=== PATIENT | female | born 1990 | race American Indian/Alaskan Native ===

== ENCOUNTER 2017-01-02 11:06 | Observation (INO) | payer MEDICAID ==
[2017-01-02 11:38] LABS: Basophils % (Auto) 0.8 % (0.0-1.8); Eosinophils % (Auto) 2.6 % (0.0-4.3); Hematocrit 35.6 % (30.3-42.9); Mean Corpuscular HGB Conc 34 % (30-34); Mean Corpuscular Hemoglobin 30 pg (28-32); Mean Corpuscular Volume 89 fl (79-97); Platelet Count 279 K/mm3 (140-440); Red Blood Count 3.99 M/mm3 (3.65-5.03); Red Cell Distribution Width 14.3 % (13.2-15.2); White Blood Count 4.8 K/mm3 (4.5-11.0)
[2017-01-02 12:02] LABS: Alanine Aminotransferase 77 units/L (7-56); Albumin/Globulin Ratio 1.1 %; Alkaline Phosphatase 58 units/L (35-129); Anion Gap 18 mmol/L; Blood Urea Nitrogen 10 mg/dL (7-17); Calcium 8.8 mg/dL (8.4-10.2); Carbon Dioxide 21 mmol/L (22-30); Chloride 102.9 mmol/L (98-107); Glucose 86 mg/dL (65-100); Lipase 50 units/L (13-60); Sodium 138 mmol/L (137-145); Total Protein 7.5 g/dL (6.3-8.2)
[2017-01-02 12:33] LABS: Bilirubin,Urine NEG (Negative)
[2017-01-02 12:34] LABS: Bacteria,Urine 2+ /HPF (Negative); Blood,Urine NEG (Negative); Ketones,Urine NEG (Negative); Leukocyte Esterase,Urine SM (Negative); Mucus,Urine 1+ /HPF; Nitrite,Urine NEG (Negative)
[2017-01-02] MEDS ORDERED: ZOFRAN IV ONE (15:23)
[2017-01-02] MEDS ORDERED: PEPCID IV ONE (15:23)
[2017-01-02] MEDS ORDERED: MORPHINE IV ONE (15:23)
--- NOTE | 2017-01-02 15:26 | Emergency Department Report ---
ED Abdominal Pain HPI - General Chief Complaint: Abdominal Pain Stated Complaint: ABD PAIN Time Seen by Provider: 01/02/17 14:58 Source: patient Mode of arrival: Ambulatory Limitations: No Limitations - History of Present Illness Initial Comments: 26 year old female with a past medical history previous presents to Hospital complaints of abdominal pain and back pain 4 days. Pain is in the epigastric and right upper quadrant area radiating to the right flank. Pain is moderate in intensit, intermittent, aching and sharp in intensity, worse with palpation and food intake. Positive nausea without vomiting or fever. No puts them on or hematochezia. No urinary symptoms reported. Patient took Pattie- Willoughby and Pepto-Bismol without relief. - Related Data Allergies Allergy/AdvReac Type Severity Reaction Status Date / Time No Known Allergies Allergy Verified 01/02/17 11:17 ED Review of Systems ROS: Stated complaint: ABD PAIN Other details as noted in HPI Comment: All other systems reviewed and negative Other: Constitutional: No fevers chills Eyes: No eye pain visual changes ENT: No ear pain or throat pain Neck: Denies pain Respiratory: Denies cough wheezing shortness of breath Cardiovascular: Denies chest pain, palpitations, syncope GI: as per hpi : Denies dysuria, urinary frequency, or urgency Musculoskeletal: As per HPI Skin: Denies rash, lesions, erythema Neurologic: Denies headache, numbness, weakness Psychiatric: Denies suicidal ideation, hallucinations ED Past Medical Hx - Past Medical History Previous Medical History?: No - Surgical History Past Surgical History?: Yes Additional Surgical History: - Social History Smoking Status: Never Smoker Substance Use Type: Alcohol ED Physical Exam - General Limitations: No Limitations - Other Other exam information: General: No limitations, patient is alert in no acute distress Head exam: Atraumatic, normocephalic Eyes exam: Normal appearance ENT: Moist mucous membrane, normal oropharynx Neck exam: Normal inspection, full range of motion, no meningismus nontender Respiratory exam: Clear to auscultation bilateral, no wheezes, rales, crackles Cardiovascular: Normal rate and rhythm, normal heart sounds Abdomen: Soft, nondistended, epigastric tenderness, right upper quadrant tenderness, negative Velazquez sign, with normal bowel sounds, no rebound, or guarding Extremity: Full range of motion normal inspection no deformity Back: Normal Inspection, full range of motion, no tenderness Neurologic: Alert, oriented x3, cranial nerves intact, no motor or sensory deficit Psychiatric: normal affect, normal mood Skin: Warm, dry, intact ED Course Vital Signs 01/02/17 01/02/17 01/02/17 11:13 15:04 15:15 Temperature 98.6 F 98.4 F Pulse Rate 103 H 89 Respiratory 18 18 Rate Blood Pressure 137/85 115/75 115/75 Blood Pressure 115/75 [Right] O2 Sat by Pulse 98 100 94 Oximetry 01/02/17 01/02/17 01/02/17 15:30 15:46 16:00 Temperature Pulse Rate Respiratory Rate Blood Pressure 114/60 114/60 104/77 Blood Pressure [Right] O2 Sat by Pulse 100 100 100 Oximetry 01/02/17 01/02/17 01/02/17 16:28 16:30 16:46 Temperature Pulse Rate Respiratory Rate Blood Pressure 104/77 116/64 116/64 Blood Pressure [Right] O2 Sat by Pulse 100 100 99 Oximetry 01/02/17 01/02/17 01/02/17 17:00 17:16 17:30 Temperature Pulse Rate Respiratory Rate Blood Pressure 110/62 110/62 107/55 Blood Pressure [Right] O2 Sat by Pulse 100 99 100 Oximetry 01/02/17 01/02/17 01/02/17 17:46 18:00 18:16 Temperature Pulse Rate Respiratory Rate Blood Pressure 107/55 103/53 103/53 Blood Pressure [Right] O2 Sat by Pulse 100 100 100 Oximetry - Reevaluation(s) Reevaluation #1: 01/02/17 15:26 Morphine and Zofran for pain. Pepcid given. Ultrasound pending 01/02/17 19:30 Patient feels better after pain medication ED Medical Decision Making - Lab Data Result diagrams: 01/02/17 11:28 01/02/17 11:28 Lab Results 01/02/17 01/02/17 01/02/17 Range/Units 11:28 11:28 12:13 WBC 4.8 (4.5-11.0) K/mm3 RBC 3.99 (3.65-5.03) M/mm3 Hgb 12.0 (10.1-14.3) gm/dl Hct 35.6 (30.3-42.9) % MCV 89 (79-97) fl MCH 30 (28-32) pg MCHC 34 (30-34) % RDW 14.3 (13.2-15.2) % Plt Count 279 (140-440) K/mm3 Lymph % (Auto) 44.1 H (13.4-35.0) % Lanier % (Auto) 7.8 H (0.0-7.3) % Eos % (Auto) 2.6 (0.0-4.3) % Baso % (Auto) 0.8 (0.0-1.8) % Lymph # 2.1 (1.2-5.4) K/mm3 Lanier # 0.4 (0.0-0.8) K/mm3 Eos # 0.1 (0.0-0.4) K/mm3 Baso # 0.0 (0.0-0.1) K/mm3 Seg Neutrophils % 44.7 (40.0-70.0) % Seg Neutrophils # 2.1 (1.8-7.7) K/mm3 Sodium 138 (137-145) mmol/L Potassium 4.0 (3.6-5.0) mmol/L Chloride 102.9 (98-107) mmol/L Carbon Dioxide 21 L (22-30) mmol/L Anion Gap 18 mmol/L BUN 10 (7-17) mg/dL Creatinine 0.5 L (0.7-1.2) mg/dL Estimated GFR > 60 ml/min BUN/Creatinine Ratio 20.00 % Glucose 86 (65-100) mg/dL Calcium 8.8 (8.4-10.2) mg/dL Total Bilirubin 0.50 (0.1-1.2) mg/dL AST 65 H (5-40) units/L ALT 77 H (7-56) units/L Alkaline Phosphatase 58 (35-129) units/L Total Protein 7.5 (6.3-8.2) g/dL Albumin 4.0 (3.9-5) g/dL Albumin/Globulin Ratio 1.1 % Lipase 50 (13-60) units/L Urine Color Yellow (Yellow) Urine Turbidity Cloudy (Clear) Urine pH 5.0 (5.0-7.0) Ur Specific Jones 1.028 (1.003-1.030) Urine Protein 30 mg/dl (Negative) mg/dL Urine Glucose (UA) Neg (Negative) mg/dL Urine Ketones Neg (Negative) mg/dL Urine Blood Neg (Negative) Urine Nitrite Neg (Negative) Urine Bilirubin Neg (Negative) Urine Urobilinogen 2.0 (<2.0) mg/dL Ur Leukocyte Esterase Sm (Negative) Urine WBC (Auto) 4.0 (0.0-6.0) /HPF Urine RBC (Auto) 3.0 (0.0-6.0) /HPF U Epithel Cells (Auto) 47.0 H (0-13.0) /HPF Urine Bacteria (Auto) 2+ (Negative) /HPF Urine Mucus 1+ /HPF Urine HCG, Qual (Negative) 01/02/17 Range/Units 12:13 WBC (4.5-11.0) K/mm3 RBC (3.65-5.03) M/mm3 Hgb (10.1-14.3) gm/dl Hct (30.3-42.9) % MCV (79-97) fl MCH (28-32) pg MCHC (30-34) % RDW (13.2-15.2) % Plt Count (140-440) K/mm3 Lymph % (Auto) (13.4-35.0) % Lanier % (Auto) (0.0-7.3) % Eos % (Auto) (0.0-4.3) % Baso % (Auto) (0.0-1.8) % Lymph # (1.2-5.4) K/mm3 Lanier # (0.0-0.8) K/mm3 Eos # (0.0-0.4) K/mm3 Baso # (0.0-0.1) K/mm3 Seg Neutrophils % (40.0-70.0) % Seg Neutrophils # (1.8-7.7) K/mm3 Sodium (137-145) mmol/L Potassium (3.6-5.0) mmol/L Chloride (98-107) mmol/L Carbon Dioxide (22-30) mmol/L Anion Gap mmol/L BUN (7-17) mg/dL Creatinine (0.7-1.2) mg/dL Estimated GFR ml/min BUN/Creatinine Ratio % Glucose (65-100) mg/dL Calcium (8.4-10.2) mg/dL Total Bilirubin (0.1-1.2) mg/dL AST (5-40) units/L ALT (7-56) units/L Alkaline Phosphatase (35-129) units/L Total Protein (6.3-8.2) g/dL Albumin (3.9-5) g/dL Albumin/Globulin Ratio % Lipase (13-60) units/L Urine Color (Yellow) Urine Turbidity (Clear) Urine pH (5.0-7.0) Ur Specific Jones (1.003-1.030) Urine Protein (Negative) mg/dL Urine Glucose (UA) (Negative) mg/dL Urine Ketones (Negative) mg/dL Urine Blood (Negative) Urine Nitrite (Negative) Urine Bilirubin (Negative) Urine Urobilinogen (<2.0) mg/dL Ur Leukocyte Esterase (Negative) Urine WBC (Auto) (0.0-6.0) /HPF Urine RBC (Auto) (0.0-6.0) /HPF U Epithel Cells (Auto) (0-13.0) /HPF Urine Bacteria (Auto) (Negative) /HPF Urine Mucus /HPF Urine HCG, Qual Positive A (Negative) - Radiology Data Radiology results: report reviewed Abdominal ultrasound: Positive cholelithiasis. No evidence of cholecystitis Transvaginal/OB ultrasound: No IUP. Uterus is retroverted. No free fluid. Right ovary visualized. Left ovary not visualized. - Medical Decision Making Patient's pain likey secondary to biliary colic. Patient to follow up with a surgeon as outpatient since no signs of acute cholecystitis. Patient has elevated quantitative rate of 5000 and no IUP is visualized. PATIENT WILL BE ADMITTED TO [facility] FOR FURTHER MONITORING AND REPEAT QUANT TOMORROW. At this time ectopic cannot be ruled out. - Differential Diagnosis biliary colic, PUD, gastritis, renal colic, UTI Critical Care Time: No Critical care attestation.: If time is entered above; I have spent that time in minutes in the direct care of this critically ill patient, excluding procedure time. ED Disposition Clinical Impression: Cholelithiasis, Elevated serum hCG Disposition: OP ADMIT IP TO THIS HOSP Is pt being admited?: Yes Condition: Stable Time of Disposition: 19:57 (Dr Sparrow/circulation supervisor)
--- NOTE | 2017-01-02 17:41 | Ultrasound Report ---
FINAL REPORT PROCEDURE: US ABDOMEN COMPLETE TECHNIQUE: Real-time sonography in multiple planes of the abdomen was performed with image documentation. CPT 07226 HISTORY: ruq, epigastric pain COMPARISON: No prior studies are available for comparison. FINDINGS: Liver: Limited evaluation due to body habitus. No gross abnormality is seen. Gallbladder: 1.4 centimeter echogenic gallstone is seen within the gallbladder lumen. No gallbladder wall thickening. Masonry Instructor reports a negative sonographic Velazquez sign. Intrahepatic bile ducts: Normal caliber . Extrahepatic bile ducts: Common bile duct measures 4 millimeters in caliber. Pancreas: Not well-visualized. Aorta: Visualized portions appear normal. IVC: Visualized portions appear normal. RIGHT kidney: Normal echotexture. No focal renal mass, calculus, or hydronephrosis. Length: 11.1cm. LEFT kidney: Normal echotexture. No focal renal mass, calculus, or hydronephrosis . Length: 13.0cm. Spleen: Normal size and echotexture. No focal lesions. Intraperitoneal fluid: None . Other: None . IMPRESSION: Cholelithiasis. No sonographic evidence of acute cholecystitis.
--- NOTE | 2017-01-02 19:38 | Ultrasound Report ---
FINAL REPORT PROCEDURE: US OB TRANSVAGINAL TECHNIQUE: Real-time transvaginal sonography of the uterus, placenta, amniotic fluid, adnexa, and fetus was performed with image documentation. Measurements were obtained to determine age/size. M-mode Doppler was used to document heartbeat. CPT 78616 HISTORY: pregancy, abd pain COMPARISON: No prior studies are available for comparison. FINDINGS: Endometrial thickness is 20 millimeters. There is no evidence of any intrauterine gestational sac. Thin layer of fluid is identified in the fundal endometrial canal. Uterus is retroverted and measures 13 x 6 by 7 centimeters. Right ovary measures 2.8 x 2.7 x 2.1 centimeters. Left ovary is not visualized. There is no free fluid in the pelvic cavity. IMPRESSION: There is no evidence of any intrauterine gestational sac. Uterus is retroverted. Please note that an ectopic gestation cannot be excluded on the sonographic findings alone 2. EDC by US .
--- NOTE | 2017-01-02 19:39 | Ultrasound Report ---
FINAL REPORT PROCEDURE: US OB \T\lt; = 14 WEEKS FETUS TECHNIQUE: Real-time transabdominal sonography of the uterus, placenta, amniotic fluid, adnexa, and fetus was performed with image documentation. Measurements were obtained to determine age/size. M-mode Doppler was used to document heartbeat. CPT 63297 HISTORY: pregancy, abd pain COMPARISON: No prior studies are available for comparison. FINDINGS: Endometrial thickness is 20 millimeters. There is no evidence of any intrauterine gestational sac. Thin layer of fluid is identified in the fundal endometrial canal. Uterus is retroverted and measures 13 x 6 by 7 centimeters. Right ovary measures 2.8 x 2.7 x 2.1 centimeters. Left ovary is not visualized. There is no free fluid in the pelvic cavity. IMPRESSION: There is no evidence of any intrauterine gestational sac. Uterus is retroverted. Please note that an ectopic gestation cannot be excluded on the sonographic findings alone
[2017-01-02] MEDS ORDERED: TYLENOL PO PRN (22:40)
[2017-01-02] MEDS ORDERED: DULCOLAX PR PRN (22:40)
[2017-01-02] MEDS ORDERED: ZOFRAN IV PRN (22:40)
[2017-01-02] MEDS ORDERED: MILK OF MAGNESIA PO PRN (22:40)
[2017-01-02] MEDS: NACL 0.9% 1000 ML 1,000 ML IV SCH (23:22)
--- NOTE | 2017-01-03 00:56 | History and Physical Report ---
History of Present Illness Date of examination: 01/03/17 Date of admission: 01/02/17 20:50 History of present illness: This 26-year-old black female para 1001 whose last menstrual period was 2016 presented to emergency room with complaints of right upper quadrant pain and lower back pain for 4-5 days. Patient states she's had nausea for several weeks. Patient workup included the abdominal abdomen which revealed gallstones but later discovered the patient had a positive test. She underwent a pelvic ultrasound which showed no evidence of intrauterine but no free fluid in the pelvis. Patient denies any abnormal vaginal bleeding denies any pelvic pain. OB history: Patient had a section 4 years ago due to nonreassuring heart tracing CASCADE OPERATOR history: Patient with no history of abnormal Pap smear she states her last Pap smear was 6 months ago. Patient was on Depo-Provera with the last injection 6 months ago. History of Trichomonas in the past no other STDs in her past Past History Past Medical History: No medical history Past Surgical History: Medications and Allergies Allergies Allergy/AdvReac Type Severity Reaction Status Date / Time No Known Allergies Allergy Verified 01/02/17 11:17 Home Medications Medication Instructions Recorded Confirmed Last Taken Type No Known Home Medications [No 01/02/17 01/02/17 Unknown History Reported Home Medications] Active Meds: Active Medications Acetaminophen (Tylenol) 650 mg PO Q4H PRN PRN Reason: Pain MILD(1-3)/Fever >100.5/REECE Bisacodyl (Dulcolax) 10 mg [place] QDAY PRN PRN Reason: Constipation unrelieved by MOM Sodium Chloride (Nacl 0.9% 1000 Ml) 1,000 mls @ 125 mls/hr IV DIRECT STEFANO Last Admin: 01/02/17 23:22 Dose: 125 mls/hr Magnesium Hydroxide (Milk Of Magnesia) 30 ml PO Q4H PRN PRN Reason: Constipation Ondansetron HCl (Zofran) 4 mg IV Q8H PRN PRN Reason: N/V unrelieved by Reglan Review of Systems Constitutional: other (see HPI) Genitourinary Female: no pelvic pain, no menorrhagia, no abnormal vaginal bleeding Exam - Constitutional Vitals: Temp Pulse Resp BP Pulse Ox 98.6 F 71 16 111/62 100 01/03/17 00:00 01/03/17 00:00 01/03/17 00:00 01/03/17 00:00 01/02/17 19:00 General appearance: Present: no acute distress - Respiratory Respiratory effort: normal - Cardiovascular Rhythm: regular - Extremities Extremities: no ischemia - Abdominal General gastrointestinal: Present: soft, tender (right upper quadrant nontender lower quadrants) Localized gastrointestinal: tender: RUQ Female genitourinary: Present: deferred - Rectal Rectal Exam: deferred - Integumentary Integumentary: Present: clear, warm, dry - Psychiatric Psychiatric: appropriate mood/affect, intact judgment & insight - Neurologic Neurologic: moves all extremities Results - Labs CBC & Chem 7: 01/02/17 11:28 01/02/17 11:28 Assessment and Plan - Patient Problems (1) Cholelithiasis Current Visit: Yes Status: Acute Qualifiers: Cholelithiasis location: C Cholecystitis presence: C Cholangitis presence : C Cholecystitis acuity: C Cholangitis acuity: C Biliary obstruction: B Plan to address problem: Will evaluate outpatient with surgeon (2) Elevated serum hCG Current Visit: Yes Status: Acute Plan to address problem: Patient with an level over 5000 with no IUP. Hospital Z is spontaneous versus ectopic patient has no symptoms of ectopic also possibility of early intrauterine . Will observe overnight and reassess in the morning we will repeat serum beta-hCG.
[2017-01-03] MEDS: NACL 0.9% 1000 ML 1,000 ML IV SCH (06:08)
[2017-01-03] MEDS ORDERED: TYLENOL #3 PO ONE (10:13)
--- NOTE | 2017-01-03 10:41 | Discharge Summary ---
Providers - Providers Date of Admission: 01/02/17 20:50 Date of discharge: 01/03/17 Attending physician: SYLVIA DAVIS Primary care physician: GEM EXPERT Hospitalization Reason for admission: rule out ectopic Condition: Good Hospital course: See H&P for details. Repeat beta-hCG only several a slight increase. Patient again denied any pelvic pain or abnormal vaginal bleeding her pain is still appears to be associated with her gallstones. Disposition: - TO HOME OR SELFCARE - Discharge Diagnoses (1) Cholelithiasis Status: Acute Qualifiers: Cholelithiasis location: C Cholecystitis presence: C Cholangitis presence : C Cholecystitis acuity: C Cholangitis acuity: C Biliary obstruction: B (2) Elevated serum hCG Status: Acute Comment: Discussed with the patient options of treatment this is an ectopic and option of methotrexate but patient declined due to her her that this may be a normal . Also discussed the treatment with laparoscopy which patient declines. Patient desires expectant management with follow-up in my office in 48 hours repeat ultrasound and beta hCG. Again stress the patient reports risks of possible internal bleeding could be severe with ectopic Core Measure Documentation - Palliative Care Palliative Care/ Comfort Measures: Not Applicable - Core Measures Any of the following diagnoses?: none Exam - Constitutional Vitals: Temp Pulse Resp BP Pulse Ox 98.6 F 72 18 118/70 100 01/03/17 04:00 01/03/17 04:00 01/03/17 08:04 01/03/17 08:04 01/02/17 21:30 General appearance: Present: no acute distress - Respiratory Respiratory effort: normal - Cardiovascular Rhythm: regular - Extremities Extremities: no ischemia, No edema - Abdominal General gastrointestinal: Present: soft, non-tender (and lower abdomen suprapubically and no adnexal tenderness), tender Localized gastrointestinal: tender: RUQ Female genitourinary: Present: deferred - Rectal Rectal Exam: deferred - Integumentary Integumentary: Present: clear, warm, dry - Psychiatric Psychiatric: appropriate mood/affect, intact judgment & insight - Neurologic Neurologic: moves all extremities Plan Activity: advance as tolerated Diet: regular Additional Instructions: Patient instructed to call for any increase in pelvic pain or abnormal vaginal bleeding nausea vomiting or pain not controlled pain medicines. My office information was given the patient follow-up in office in 48-72 hours Follow up with: PRIMARY CARE, [Primary Care Provider] - 7 Days Prescriptions: Acetaminophen/Codeine [Tylenol #3] 1 tab PO Q4HR PRN #20 tablet PRN Reason: Pain
[2017-01-03 14:38] VITALS: BP 146/84
== END 2017-01-03 13:00 | disposition home or self-care (01) ==
LOC: ED 11:06 → OB 20:50
PROVIDERS: ADMIT Obstetrics & Gynecology; ATTEND Obstetrics & Gynecology
DX: K80.20 Calculus of gallbladder without cholecystitis without obstruction (principal); E34.9 Endocrine disorder, unspecified
CPT/HCPCS: 36415; 76700; 76801; 76817; 80053; 81001; 81025; 83690; 84702; 85025; 96361; 96374; 96375; 99285; G0378; J2270; J2405; J7030

== ENCOUNTER 2018-08-09 20:27 | Emergency (ER) | payer MEDICAID, OTHER ==
--- NOTE | 2018-08-09 20:54 | Emergency Department Report ---
Blank Doc - Documentation Documentation: This is a 27-year-old female that presents with weakness and dizziness. This initial assessment/diagnostic orders/clinical plan/treatment(s) is/are subject to change based on patient's health status, clinical progression and re- assessment by fellow clinical providers in the ED. Further treatment and workup at subsequent clinical providers discretion. Patient/guardians urged not to elope from the ED as their condition may be serious if not clinically assessed and managed. Initial orders include: 1- Patient sent to [facility] for further evaluation and treatment 2- labs 3- UA
[2018-08-09 20:57] VITALS: BP 141/81
[2018-08-09 21:47] LABS: Basophils % (Auto) 0.6 % (0.0-1.8); Eosinophils # (Auto) 0.2 K/mm3 (0.0-0.4); Eosinophils % (Auto) 3.2 % (0.0-4.3); Hematocrit 33.3 % (30.3-42.9); Hemoglobin 11.7 gm/dl (10.1-14.3); Lymphocytes # (Auto) 2.2 K/mm3 (1.2-5.4); Mean Corpuscular HGB Conc 35 % (30-34); Mean Corpuscular Volume 89 fl (79-97); Monocytes # (Auto) 0.5 K/mm3 (0.0-0.8); Monocytes % (Auto) 8.6 % (0.0-7.3); Platelet Count 275 K/mm3 (140-440); Red Blood Count 3.76 M/mm3 (3.65-5.03)
[2018-08-09 22:01] LABS: BUN/Creatinine Ratio 16; Blood Urea Nitrogen 11 mg/dL (7-17); Hemolysis Index 1
[2018-08-09 22:17] LABS: Bilirubin,Urine NEG (Negative); Blood,Urine LG (Negative); Color,Urine Red (Yellow); Mucus,Urine 1+ /HPF; Urobilinogen,Urine < 2.0 mg/dL (<2.0)
[2018-08-09 22:18] LABS: RBC,Urine > 182.0 /HPF (0.0-6.0); WBC,Urine > 182.0 /HPF (0.0-6.0)
[2018-08-10] MEDS ORDERED: NACL 0.9% 1000 ML 1,000 ML IV ONE (01:53)
[2018-08-10] MEDS ORDERED: ROCEPHIN/NS 1 GM/50 ML 1 GM/50 ML BAG IV ONE (01:53)
[2018-08-10] MEDS ORDERED: TORADOL IV ONE (01:54)
[2018-08-10] MEDS ORDERED: ZOFRAN IV ONE (01:54)
--- NOTE | 2018-08-10 03:49 | Emergency Department Report ---
ED General Adult HPI - General Chief complaint: Dizziness Stated complaint: WEAKNESS/DIZZINESS Time Seen by Provider: 08/09/18 20:53 Source: patient Mode of arrival: Ambulatory Limitations: No Limitations - History of Present Illness Initial comments: This is a 27-year-old female that presents with weakness and dizziness with associated urinary frequency no vaginal discharge no fever or chills. Onset/Timin -: days(s), week(s) Severity scale (0 -10): 0 Consistency: intermittent Improves with: none Worsens with: none Associated Symptoms: denies: fever/chills, nausea/vomiting - Related Data Previous Rx's Medication Instructions Recorded Last Taken Type Acetaminophen/Codeine [Tylenol #3] 1 tab PO Q4HR PRN #20 tablet 01/03/17 Unknown Rx Ibuprofen 800 mg PO TID PRN #30 tablet 08/10/18 Unknown Rx Nitrofurantoin Monohyd/M-Cryst 100 mg PO BID 7 Days #14 capsule 08/10/18 Unknown Rx [Macrobid 100 mg Capsule] Allergies Allergy/AdvReac Type Severity Reaction Status Date / Time No Known Allergies Allergy Verified 01/02/17 11:17 ED Review of Systems ROS: Stated complaint: WEAKNESS/DIZZINESS Other details as noted in HPI Constitutional: denies: chills, fever Eyes: denies: eye pain, eye discharge, vision change ENT: denies: ear pain, throat pain Respiratory: denies: cough, shortness of breath, wheezing Cardiovascular: denies: chest pain, palpitations Endocrine: no symptoms reported Gastrointestinal: denies: abdominal pain, nausea, diarrhea Genitourinary: denies: urgency, dysuria, discharge Musculoskeletal: denies: back pain, joint swelling, arthralgia Skin: denies: rash, lesions Neurological: denies: headache, weakness, paresthesias Psychiatric: denies: anxiety, depression Hematological/Lymphatic: denies: easy bleeding, easy bruising ED Past Medical Hx - Past Medical History Previous Medical History?: No Hx Asthma: No - Surgical History Past Surgical History?: Yes Additional Surgical History: - Social History Smoking Status: Never Smoker Substance Use Type: None - Medications Home Medications: Home Medications Medication Instructions Recorded Confirmed Last Taken Type Acetaminophen/Codeine [Tylenol #3] 1 tab PO Q4HR PRN #20 tablet 01/03/17 Unknown Rx Ibuprofen 800 mg PO TID PRN #30 tablet 08/10/18 Unknown Rx Nitrofurantoin Monohyd/M-Cryst 100 mg PO BID 7 Days #14 capsule 08/10/18 Unknown Rx [Macrobid 100 mg Capsule] ED Physical Exam - General Limitations: No Limitations General appearance: alert, in no apparent distress - Head Head exam: Present: atraumatic, normocephalic - Eye Eye exam: Present: normal appearance, PERRL, EOMI Pupils: Present: normal accommodation - ENT ENT exam: Present: mucous membranes moist - Neck Neck exam: Present: normal inspection, full ROM. Absent: tenderness, meningismus, lymphadenopathy, thyromegaly - Respiratory Respiratory exam: Present: normal lung sounds bilaterally. Absent: respiratory distress, wheezes, stridor, chest wall tenderness - Cardiovascular Cardiovascular Exam: Present: regular rate, normal rhythm, normal heart sounds. Absent: systolic murmur, diastolic murmur, rubs, gallop - GI/Abdominal GI/Abdominal exam: Present: soft, normal bowel sounds. Absent: distended, tenderness, guarding, rebound, rigid, bruit, hernia - Rectal Rectal exam: Present: deferred - Extremities Exam Extremities exam: Present: normal inspection, full ROM, normal capillary refill. Absent: tenderness, calf tenderness - Back Exam Back exam: Present: normal inspection, full ROM. Absent: tenderness, CVA tenderness (R), CVA tenderness (L), muscle spasm, rash noted - Neurological Exam Neurological exam: Present: alert, oriented X3, CN II-XII intact, normal gait. Absent: reflexes normal - Psychiatric Psychiatric exam: Present: normal affect, normal mood - Skin Skin exam: Present: warm, dry, intact, normal color. Absent: rash ED Course Vital Signs 08/09/18 08/10/18 08/10/18 20:54 01:35 02:45 Temperature 98.7 F Pulse Rate 108 H 88 Respiratory 18 18 16 Rate Blood Pressure 141/81 O2 Sat by Pulse 98 99 Oximetry ED Medical Decision Making - Lab Data Result diagrams: 08/09/18 21:19 08/09/18 21:19 Labs 08/09/18 08/09/18 08/09/18 21:19 21:19 21:19 WBC 5.8 RBC 3.76 Hgb 11.7 Hct 33.3 MCV 89 MCH 31 MCHC 35 H RDW 15.0 Plt Count 275 Lymph % (Auto) 38.0 H Shannon % (Auto) 8.6 H Eos % (Auto) 3.2 Baso % (Auto) 0.6 Lymph # 2.2 Shannon # 0.5 Eos # 0.2 Baso # 0.0 Seg Neutrophils % 49.6 Seg Neutrophils # 2.9 Sodium 140 Potassium 3.8 Chloride 104.2 Carbon Dioxide 26 Anion Gap 14 BUN 11 Creatinine 0.7 Estimated GFR > 60 BUN/Creatinine Ratio 16 Glucose 92 Calcium 9.0 HCG, Qual Negative Urine Color Urine Turbidity Urine pH Ur Specific [place] Urine Protein Urine Glucose (UA) Urine Ketones Urine Blood Urine Nitrite Urine Bilirubin Urine Urobilinogen Ur Leukocyte Esterase Urine WBC (Auto) Urine RBC (Auto) U Epithel Cells (Auto) Urine WBC Clumps Urine Mucus 08/09/18 21:53 WBC RBC Hgb Hct MCV MCH MCHC RDW Plt Count Lymph % (Auto) Shannon % (Auto) Eos % (Auto) Baso % (Auto) Lymph # Shannon # Eos # Baso # Seg Neutrophils % Seg Neutrophils # Sodium Potassium Chloride Carbon Dioxide Anion Gap BUN Creatinine Estimated GFR BUN/Creatinine Ratio Glucose Calcium HCG, Qual Urine Color Red Urine Turbidity Cloudy Urine pH 6.0 Ur Specific [place] 1.036 H Urine Protein 100 mg/dl Urine Glucose (UA) 50 Urine Ketones Neg Urine Blood Lg Urine Nitrite Neg Urine Bilirubin Neg Urine Urobilinogen < 2.0 Ur Leukocyte Esterase Tr Urine WBC (Auto) > 182.0 H Urine RBC (Auto) > 182.0 U Epithel Cells (Auto) 22.0 H Urine WBC Clumps 3+ Urine Mucus 1+ - EKG Data EKG shows normal: sinus rhythm, axis, intervals, QRS complexes, ST-T waves Rate: normal - EKG Data Interpretation: normal EKG (ekg interp by ed attending no st elevation no ectopy ) - Medical Decision Making EKG: NSR, No ST elevation, UA: lg luek, wbc, tx with rocephin, NS 1 liter iv, pt advised symptoms improved no dizziness no n/v no fever or chills at this time. pt is ambulatory , gait is steady , pt is asymptomatic at this time, pt dc'd to home in stable condition at this time. Critical care attestation.: If time is entered above; I have spent that time in minutes in the direct care of this critically ill patient, excluding procedure time. ED Disposition Clinical Impression: UTI (urinary tract infection) Qualifiers: Urinary tract infection type: acute cystitis Hematuria presence: without hematuria Qualified Code(s): N30.00 - Acute cystitis without hematuria Disposition: TO HOME OR SELFCARE Is pt being admited?: No Does the pt Need Aspirin: No Condition: Stable Instructions: Urinary Tract Infection in Women (ED) Prescriptions: Ibuprofen 800 mg PO TID PRN #30 tablet PRN Reason: PRN Nitrofurantoin Monohyd/M-Cryst [Macrobid 100 mg Capsule] 100 mg PO BID 7 Days #14 capsule Referrals: [facility] [Outside] - 3-5 Days Forms: Work/School Release Form(ED) Time of Disposition: 03:59
== END 2018-08-10 04:16 | disposition home or self-care (01) ==
LOC: ED 20:27
DX: N30.00 Acute cystitis without hematuria (principal)
CPT/HCPCS: 36415; 80048; 81001; 84703; 85025; 93005; 93010; 96365; 96375; 99283; J0696; J1885; J2405; J7030

== ENCOUNTER 2021-02-26 09:48 | Emergency (ER) | payer MEDICAID ==
[2021-02-26 09:55] VITALS: BP 126/90
--- NOTE | 2021-02-26 09:55 | Emergency Department Report ---
- General Stated complaint: BREAST SWOLLEN Time Seen by Provider: 02/26/21 09:53 Source: patient Mode of arrival: Ambulatory Limitations: No Limitations - History of Present Illness Initial comments: 30 YO AA COMES TO ER WITH CO R BREAST REDNESS P BEING BIT BY INSECT YESTERDAY. SHE DOES NOT KNOW WHAT KIND OF BUG IT WAS. RIGHT BREAST RED/ NO ABSCESS. PT DENIES PAIN. NO DRAINAGE. NO FEVER/CHILLS PT AMBULATORY AND NON ILL APPEARING ON EXAM IN ER complaint: insect bite/sting, discoloration -: Sudden, days(s) Tetanus Up to Date: yes Severity: mild Severity scale (0 -10): 0 Context: witnessed insect bite Associated symptoms: denies other symptoms Treatments Prior to Arrival: none - Related Data Previous Rx's Medication Instructions Recorded Last Taken Type cephALEXin [Keflex] 500 mg PO Q12HR #20 cap 02/26/21 Unknown Rx Allergies Allergy/AdvReac Type Severity Reaction Status Date / Time No Known Allergies Allergy Verified 01/02/17 11:17 Abscess Boil HPI - HPI Stated Complaint: BREAST SWOLLEN Time Seen by Provider: 02/26/21 09:53 Home Medications: Previous Rx's Medication Instructions Recorded Last Taken Type cephALEXin [Keflex] 500 mg PO Q12HR #20 cap 02/26/21 Unknown Rx Allergies/Adverse Reactions: Allergies Allergy/AdvReac Type Severity Reaction Status Date / Time No Known Allergies Allergy Verified 01/02/17 11:17 ED Review of Systems ROS: Stated complaint: BREAST SWOLLEN Other details as noted in HPI Comment: All other systems reviewed and negative ED Past Medical Hx - Past Medical History Previous Medical History?: No Hx Asthma: No Additional medical history: heart murmur - Surgical History Past Surgical History?: Yes Additional Surgical History: - Family History Family history: no significant - Social History Smoking Status: Never Smoker Substance Use Type: Alcohol - Medications Home Medications: Home Medications Medication Instructions Recorded Confirmed Last Taken Type cephALEXin [Keflex] 500 mg PO Q12HR #20 cap 02/26/21 Unknown Rx ED Physical Exam - General General appearance: alert, in no apparent distress - Head Head exam: Present: atraumatic, normocephalic - Eye Eye exam: Present: normal appearance - ENT ENT exam: Present: mucous membranes moist - Neck Neck exam: Present: normal inspection - Respiratory Respiratory exam: Present: normal lung sounds bilaterally. Absent: respiratory distress - Cardiovascular Cardiovascular Exam: Present: regular rate, normal rhythm. Absent: systolic mu rmur, diastolic murmur, rubs, gallop - GI/Abdominal GI/Abdominal exam: Present: soft, normal bowel sounds - Extremities Exam Extremities exam: Present: normal inspection - Back Exam Back exam: Present: normal inspection - Neurological Exam Neurological exam: Present: alert, oriented X3 - Psychiatric Psychiatric exam: Present: normal affect, normal mood - Skin Skin exam: Present: warm, dry, intact, other. Absent: rash - Expanded Skin Exam Expanded 1 - PENDULOUS R BREAST; RED TO THE LEFT OF MIDLINE, BELOW THE NIPPLE; APPROX 3 INC X 3 INC AREA. NO DRAINGE. NO ABSCESS. WARM TO TOUCH. NO FLUCT. ED Course Vital Signs 02/26/21 09:54 Temperature 98.3 F Pulse Rate 85 Respiratory 16 Rate Blood Pressure 126/90 O2 Sat by Pulse 97 Oximetry ED Medical Decision Making - Medical Decision Making R BREAST - NO ABSCESS RED/INFLAMMED NO INDICATION FOR I/D NO INDICATION FOR LABS AMBULATORY AND TAKING PO Vital Signs (72 hours) 02/26/21 09:54 Temperature 98.3 F Pulse Rate 85 Respiratory 16 Rate Blood Pressure 126/90 O2 Sat by Pulse 97 Oximetry DC HOME WITH DC PLAN OF CARE INCLUDING WOUND CARE/ MEDS AND FOLLOW UP. PT VERBALIZES UNDERSTANDING OF PLAN OF CARE - Differential Diagnosis CELLULTIIS/ABSCESS Critical care attestation.: If time is entered above; I have spent that time in minutes in the direct care of this critically ill patient, excluding procedure time. ED Disposition Clinical Impression: Cellulitis, Insect bite Disposition: 01 HOME / SELF CARE / HOMELESS Is pt being admited?: No Does the pt Need Aspirin: No Condition: Stable Instructions: Cellulitis, Adult Additional Instructions: warm compresses motrin or tylenol for pain med as ordered today until gone follow up with pcp in 48 hours for rcheck referral below Prescriptions: cephALEXin [Keflex] 500 mg PO Q12HR #20 cap Referrals: RUSSELL SEWELL MD [Staff Physician] - 3-5 Days Time of Disposition: 09:54
== END 2021-02-26 10:21 | disposition home or self-care (01) ==
LOC: ED 09:48
DX: S20.161A Insect bite (nonvenomous) of breast, right breast, initial encounter (principal); N61.0 Mastitis without abscess; F10.20 Alcohol dependence, uncomplicated
CPT/HCPCS: 99281

== ENCOUNTER 2021-10-29 14:30 | Emergency (ER) | payer MEDICAID ==
[2021-10-29 16:14] VITALS: BP 141/99
[2021-10-29 16:51] LABS: Bacteria,Urine 1+ /HPF (Negative); Bilirubin,Urine NEG (Negative); Blood,Urine NEG (Negative); Color,Urine Yellow (Yellow); Mucus,Urine 2+ /HPF; Protein,Urine <15 mg/dL mg/dL (Negative); Urobilinogen,Urine < 2.0 mg/dL (<2.0)
[2021-10-29 17:08] LABS: HCG Qualitative,Urine Negative (Negative)
[2021-10-29] MEDS ORDERED: cephALEXin 500 MG CAP PO ONE (21:08)
[2021-10-29] MEDS ORDERED: ACETAMINOPHEN 500 MG TAB PO ONE (21:08)
[2021-10-29] MEDS ORDERED: METOCLOPRAMIDE 10 MG TAB PO ONE (21:08)
[2021-10-29] MEDS ORDERED: diphenhydrAMINE 25 MG CAP PO ONE (21:08)
--- NOTE | 2021-10-29 21:33 | Emergency Department Report ---
ED General Adult HPI - General Chief complaint: Headache Stated complaint: HEAD AND ABD PAIN X 1WEEK Time Seen by Provider: 10/29/21 21:06 Source: patient Mode of arrival: Ambulatory Limitations: No Limitations - History of Present Illness Initial comments: Patient 31-year-old female who presents for headache frontal rated at 4/10 for the past 3 days intermittently. Patient states history of headaches in the past. In same location and intensity. There is no nausea there is no vomiting. There is no photophobia. There is been no fever chills no ear or throat pain. Patient states secondary complaint of lower abdominal pain with urinary frequency for 2 days. Patient denies fevers or chills there is no vaginal discharge. There is no hematuria. No low back pain. Symptoms are exacerbated by voiding. Symptoms are relieved by nothing tried. Last menstrual cycle 3 weeks ago. - Related Data Previous Rx's Medication Instructions Recorded Last Taken Type cephALEXin [Keflex] 500 mg PO Q12HR #20 cap 02/26/21 Unknown Rx Acetaminophen [Acetaminophen TAB] 1,000 mg PO Q6HR PRN #30 tablet 10/29/21 Unknown Rx Metoclopramide [Reglan] 10 mg PO Q8H PRN #30 tablet 10/29/21 Unknown Rx cephALEXin [Keflex] 500 mg PO BID 7 Days #14 cap 10/29/21 Unknown Rx diphenhydrAMINE [Benadryl CAP] 25 mg PO Q8HR PRN #30 capsule 10/29/21 Unknown Rx Allergies Allergy/AdvReac Type Severity Reaction Status Date / Time No Known Allergies Allergy Verified 01/02/17 11:17 ED Review of Systems ROS: Stated complaint: HEAD AND ABD PAIN X 1WEEK Other details as noted in HPI Constitutional: denies: chills, fever Eyes: denies: eye pain, eye discharge, vision change ENT: denies: ear pain, throat pain Respiratory: denies: cough, shortness of breath, wheezing Cardiovascular: denies: chest pain, palpitations Endocrine: no symptoms reported Gastrointestinal: abdominal pain (Bilateral lower suprapubic). denies: nausea, vomiting, diarrhea, constipation, melena Genitourinary: urgency, frequency. denies: dysuria, hematuria, discharge, abnormal menses Musculoskeletal: denies: back pain, joint swelling, arthralgia Skin: denies: rash, lesions Neurological: headache. denies: weakness, numbness, paresthesias, confusion, vertigo Psychiatric: denies: anxiety, depression Hematological/Lymphatic: denies: easy bleeding, easy bruising ED Past Medical Hx - Past Medical History Hx Asthma: No Additional medical history: heart murmur - Surgical History Additional Surgical History: - Social History Smoking Status: Never Smoker Substance Use Type: Alcohol - Medications Home Medications: Home Medications Medication Instructions Recorded Confirmed Last Taken Type cephALEXin [Keflex] 500 mg PO Q12HR #20 cap 02/26/21 Unknown Rx Acetaminophen [Acetaminophen TAB] 1,000 mg PO Q6HR PRN #30 tablet 10/29/21 Unknown Rx Metoclopramide [Reglan] 10 mg PO Q8H PRN #30 tablet 10/29/21 Unknown Rx cephALEXin [Keflex] 500 mg PO BID 7 Days #14 cap 10/29/21 Unknown Rx diphenhydrAMINE [Benadryl CAP] 25 mg PO Q8HR PRN #30 capsule 10/29/21 Unknown Rx ED Physical Exam - General Limitations: No Limitations General appearance: alert, in no apparent distress - Head Head exam: Present: normocephalic, normal inspection - Eye Eye exam: Present: PERRL, EOMI. Absent: conjunctival injection, nystagmus Pupils: Present: normal accommodation - ENT ENT exam: Present: normal orophraynx, mucous membranes moist, TM's normal bilaterally, normal external ear exam - Neck Neck exam: Present: normal inspection, full ROM. Absent: tenderness, meningismus, lymphadenopathy - Respiratory Respiratory exam: Present: normal lung sounds bilaterally. Absent: respiratory distress, wheezes - Cardiovascular Cardiovascular Exam: Present: regular rate, normal rhythm, normal heart sounds. Absent: systolic murmur, diastolic murmur, rubs, gallop - GI/Abdominal GI/Abdominal exam: Present: soft, normal bowel sounds. Absent: distended, tenderness, guarding, rebound, rigid, bruit, hernia - Rectal Rectal exam: Present: deferred - External exam: Present: other - Extremities Exam Extremities exam: Present: normal inspection (Deferred), full ROM, normal capillary refill. Absent: tenderness - Back Exam Back exam: Present: normal inspection, full ROM. Absent: CVA tenderness (R), CVA tenderness (L), vertebral tenderness - Neurological Exam Neurological exam: Present: alert, oriented X3, CN II-XII intact, normal gait, reflexes normal. Absent: motor sensory deficit - Expanded Neurological Exam Expanded Patient oriented to: Present: person, place, time Speech: Present: fluid speech Cranial nerves: EOM's Intact: Normal Cerebellar function: Finger to Nose: Normal Motor strength exam: RUE: 5, LUE: 5, RLE: 5, LLE: 5 Best Eye Response ([place]): (4) open spontaneously Best Motor Response ([place]): (6) obeys commands Best Verbal Response ([place]): (5) oriented Madelaine Total: 15 - Psychiatric Psychiatric exam: Present: normal affect, normal mood - Skin Skin exam: Present: warm, dry, intact, normal color. Absent: rash ED Course Vital Signs 10/29/21 16:11 Temperature 98.5 F Pulse Rate 98 H Respiratory 16 Rate Blood Pressure 141/99 [Left] O2 Sat by Pulse 97 Oximetry ED Medical Decision Making - Lab Data Labs 10/29/21 16:30 Urine Color Yellow Urine Turbidity Slightly-cloudy Urine pH 5.0 Ur Specific [place] 1.020 Urine Protein <15 mg/dl Urine Glucose (UA) Neg Urine Ketones Neg Urine Blood Neg Urine Nitrite Neg Urine Bilirubin Neg Urine Urobilinogen < 2.0 Ur Leukocyte Esterase Sm Urine WBC (Auto) 25.0 H Urine RBC (Auto) 2.0 U Epithel Cells (Auto) 39.0 H Urine Bacteria (Auto) 1+ Urine Mucus 2+ Urine HCG, Qual Negative - Medical Decision Making Patient 31-year-old female who presents for headache frontal rated at 4/10 for the past 3 days intermittently. Patient states history of headaches in the past. In same location and intensity. There is no nausea there is no vomiting. There is no photophobia. There is been no fever chills no ear or throat pain. Patient states secondary complaint of lower abdominal pain with urinary frequency for 2 days. Patient denies fevers or chills there is no vaginal discharge. There is no hematuria. No low back pain. Symptoms are exacerbated by voiding. Symptoms are relieved by nothing tried. Last menstrual cycle 3 weeks ago. Labs noted as above, headache is improved with medications given in ED plan DC to home, treat for UTI. Follow-up primary care doctor in 2 to 3 days. Patient verbalized agreement understanding discharge plan. Patient DC'd home in stable condition at this time. Patient is currently alert oriented x3 amatory with steady gait and with no acute distress. Critical care attestation.: If time is entered above; I have spent that time in minutes in the direct care of this critically ill patient, excluding procedure time. ED Disposition Clinical Impression: Headache Qualifiers: Headache type: unspecified Headache chronicity pattern: acute headache Intractability: not intractable Qualified Code(s): R51.9 - Headache, unspecified UTI (urinary tract infection) Qualifiers: Urinary tract infection type: acute cystitis Hematuria presence: without hematuria Qualified Code(s): N30.00 - Acute cystitis without hematuria Disposition: HOME / SELF CARE / HOMELESS Is pt being admited?: No Does the pt Need Aspirin: No Condition: Stable Instructions: Urinary Tract Infection, Adult, [id number], Migraine Headache, [id number] Additional Instructions: Take medications as prescribed, follow-up with your doctor in 2 to 3 days. Return to emergency department should symptoms worsen. Prescriptions: Acetaminophen [Acetaminophen TAB] 1,000 mg PO Q6HR PRN #30 tablet PRN Reason: Headache diphenhydrAMINE [Benadryl CAP] 25 mg PO Q8HR PRN #30 capsule PRN Reason: Headache cephALEXin [Keflex] 500 mg PO BID 7 Days #14 cap Metoclopramide [Reglan] 10 mg PO Q8H PRN #30 tablet PRN Reason: Headache Referrals: AMADO RUSH MD [Staff Physician] - 3-5 Days Forms: Work/School Release Form(ED) Time of Disposition: 21:37
== END 2021-10-29 22:25 | disposition home or self-care (01) ==
LOC: ED 14:30
DX: N39.0 Urinary tract infection, site not specified (principal); R51.9 Headache, unspecified; Z79.899 Other long term (current) drug therapy
CPT/HCPCS: 81001; 81025; 87086; 99283